=== PATIENT | female | born 1965 | race American Indian/Alaskan Native ===

== ENCOUNTER 2019-02-23 20:32 | Emergency (ER) | payer MEDICARE ==
[2019-02-23] MEDS ORDERED: DEPO-Medrol IM ONE (22:13)
[2019-02-23] MEDS ORDERED: FLEXERIL PO ONE (22:13)
[2019-02-23] MEDS ORDERED: NORCO 5/325 PO ONE (22:13)
--- NOTE | 2019-02-23 22:14 | Emergency Department Report ---
ED Back Pain/Injury HPI - General Chief Complaint: Back Pain/Injury Stated Complaint: BACK PAIN/LEFT LEG PAIN Time Seen by Provider: 02/23/19 22:07 Source: patient Limitations: No Limitations - History of Present Illness Initial Comments: PT is a 54-year-old female who comes to the ER 2 weeks after falling. She is concerned that her tailbone is broke. She states the Tylenol Motrin is not helping her pain. Patient has no neuro deficit. There are no other symptoms. There is no LOC at the time of the fall. States the pain is achy of her lower back. Movement makes it worse. - Related Data Home Medications Medication Instructions Recorded Confirmed Last Taken ARIPiprazole [Abilify TAB] 2 mg PO DAILY 06/02/13 05/27/15 05/26/15 Aspirin [Aspirin BABY CHEW TAB] 81 mg PO ONCE 06/02/13 05/27/15 05/26/15 Escitalopram Oxalate [Lexapro] 20 mg PO QDAY 06/02/13 05/27/15 05/26/15 Lisinopril [Zestril TAB] 20 mg PO QDAY 06/02/13 05/27/15 05/26/15 Omeprazole [Prilosec] 40 mg PO QDAY 06/02/13 05/27/15 05/26/15 Pregabalin [Lyrica] 150 mg PO BID 06/02/13 05/27/15 05/26/15 Rizatriptan Benzoate [Maxalt] 10 mg PO PRN 06/02/13 05/27/15 05/26/15 Topiramate [Topamax SPRINKLE] 25 mg PO 5XD 06/02/13 05/27/15 05/26/15 amLODIPine/ATORVASTATIN 1 tab PO DAILY 06/02/13 05/27/15 05/26/15 [Amlodipine-Atorvast 2.5-10 mg] glipiZIDE [Glucotrol] 5 mg PO BID 06/02/13 05/27/15 05/26/15 Previous Rx's Medication Instructions Recorded Last Taken Type Insulin Glulisine [Apidra] 6 units SUB-Q ACHS #1000 units 03/24/14 05/26/15 Rx Insulin NPH/Regular [NovoLIN 70/30] 30 unit SUB-Q BIDDIAB #2000 units 03/24/14 05/26/15 Rx metFORMIN [Glucophage] 1,000 mg PO BIDDIAB 30 Days tablet 03/24/14 05/26/15 Rx Magnesium Oxide 400 mg PO BID #20 tablet 12/26/18 Unknown Rx Cyclobenzaprine [Flexeril] 10 mg PO TID PRN #10 tablet 02/23/19 Unknown Rx predniSONE [Deltasone] 20 mg PO DAILY #5 tablet 02/23/19 Unknown Rx traMADol [Ultram] 50 mg PO Q6HR PRN #10 tablet 02/23/19 Unknown Rx Allergies Allergy/AdvReac Type Severity Reaction Status Date / Time No Known Allergies Allergy Verified 02/23/19 20:48 ED Review of Systems ROS: Stated complaint: BACK PAIN/LEFT LEG PAIN Other details as noted in HPI Comment: All other systems reviewed and negative ED Past Medical Hx - Past Medical History Anxiety, GOUT, Thyroid problems Family history: no significant family history ED Back Pain Physical Exam - Exam General: Vital signs noted. No distress. Alert and acting appropriately. WDWN patient in NAD VS per RN flow sheet Alert and oriented to person, place and time. S1-S2. No S3 or S4. No systolic or diastolic murmur. No JVD. No pitting edema. HeART rate 90 on exam Lungs clear to auscultation bilaterally anteriorly and posteriorly. Abdomen soft nontender bowel soundsx4 Moves all extremities well. Mood and affect appropriate. Back/Abdomen: Yes Straight Leg Raise Pain, No Abdominal Tenderness, No Perithoracic Tenderness, No Perilumbar Tenderness, No Sacroiliac Tenderness, No Flank Tenderness Neuro: Yes Normal Sensation, Yes Normal DTR's, Yes Normal Gait, No Motor Weakness ED Course Vital Signs 02/23/19 20:55 Temperature 98.6 F Pulse Rate 104 H Respiratory 20 Rate Blood Pressure 169/106 O2 Sat by Pulse 98 Oximetry Ed Back Pain Tests - Tests Tests: Normal X Rays ED Medical Decision Making - Radiology Data Radiology results: report reviewed, image reviewed - Medical Decision Making No acute process on x-rays. Patient medicated for pain in the ER. She did get some relief. medicated in ER for pain neuro intact no s/s cauda equina no dysuria no CVA tenderness under care of PCP dc home with dc plan of care Vital Signs 02/23/19 20:55 Temperature 98.6 F Pulse Rate 104 H Respiratory 20 Rate Blood Pressure 169/106 O2 Sat by Pulse 98 Oximetry - Differential Diagnosis ro compression fracture; fx tail bone Critical care attestation.: If time is entered above; I have spent that time in minutes in the direct care of this critically ill patient, excluding procedure time. ED Disposition Clinical Impression: Back pain, HTN (hypertension), Sciatica Disposition: TO HOME OR SELFCARE Is pt being admited?: No Does the pt Need Aspirin: No Condition: Stable Instructions: Low Back Strain (ED), Acute Low Back Pain (ED), Hypertension (ED), Chronic Back Pain (ED), Back Pain (ED) Additional Instructions: rest warm compresses good body mechanics stretching meds as ordered today follow up with Dr Baltazar Referral below Prescriptions: predniSONE [Deltasone] 20 mg PO DAILY #5 tablet Cyclobenzaprine [Flexeril] 10 mg PO TID PRN #10 tablet PRN Reason: Muscle Spasm traMADol [Ultram] 50 mg PO Q6HR PRN #10 tablet PRN Reason: Pain Referrals: EUGENIA BALTAZAR MD [Staff Physician] - 3-5 Days Time of Disposition: 22:38
--- NOTE | 2019-02-23 22:19 | XRay Report ---
Sacrum-3 views Lumbar spine-3 views INDICATION: pain, r/o fracture. Fall 2 weeks ago with generalized low back and tailbone pain COMPARISON: None. IMPRESSION: Normal alignment. No acute osseous or soft tissue abnormality. No significant DJD. Signer Name: Ramón Sanches MD Signed: 02/23/2019 10:15 PM Workstation Name: [id number]
[2019-02-23 23:50] VITALS: BP 166/104
== END 2019-02-23 23:50 | disposition home or self-care (01) ==
LOC: ED 20:32
DX: M54.5 Low back pain (principal); I10 Essential (primary) hypertension; E11.9 Type 2 diabetes mellitus without complications; F41.9 Anxiety disorder, unspecified; M10.9 Gout, unspecified; Z79.82 Long term (current) use of aspirin; Z79.899 Other long term (current) drug therapy; Z79.4 Long term (current) use of insulin; Z79.84 Long term (current) use of oral hypoglycemic drugs
CPT/HCPCS: 72100; 72220; 96372; 99283; J1040